=== PATIENT | male | born 1980 | race Caucasian/White ===

== ENCOUNTER 2019-02-11 19:04 | Emergency (ER) | payer OTHER ==
[2019-02-11] MEDS ORDERED: Lidocaine 1% 20 ML MDV INJECT ONE (19:18)
[2019-02-11] MEDS ORDERED: Bacitracin Oint 1 GM U/D Packet TOP ONE (19:18)
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
== END 2019-02-11 19:59 | disposition home or self-care (01) ==
LOC: JP.ED 19:04
DX: S01.81XA Laceration without foreign body of other part of head, initial encounter (principal); Z88.8 Allergy status to other drugs, medicaments and biological substances; W22.8XXA Striking against or struck by other objects, initial encounter
CPT/HCPCS: 12051; 99282; J2001